=== PATIENT | female | born 1980 | race Caucasian/White ===

== ENCOUNTER → 2017-10-18 | Outpatient (CLI) | payer BC ==
[~2017-10-18] MED LIST: ADDERALL 30 MG; CLONAZEPAM1 MG; IOPAMIDOL 370 MG/ML 200 ML INFUS..BTL INJ ONE; SODIUM CHLORIDE 0.9% 50ML 50 ML ONE
[2017-10-18 14:50] LABS: BLOOD UREA NITROGEN 14 mg/dL (7-26); BUN/CREATININE RATIO 23 (6-25); CREATININE, SERUM 0.62 mg/dL (0.57-1.11); EST GLOMERULAR FILTRATION RATE > 60 ML/MIN (60-)
--- NOTE | 2017-10-22 12:06 | Diagnostic Imaging Report ---
Examination: CTA of the Neck with Contrast History: 37-year-old female with pulsatile tinnitus. Comparison studies:None Technique: Axial images were obtained from the thoracic inlet. Coronal and sagittal images reconstructed from the axial data. Intravenous contrast: 100 cc of Isovue 370. Findings: Aortic arch and major vessels: Patent. No abnormalities. Common carotid arteries: Patent. No abnormalities. Right internal carotid artery: Patent. No abnormalities. Left internal carotid artery: Patent. No abnormalities. Right vertebral artery: Patent. No abnormalities. The right vertebral artery is dominant. Left vertebral artery: Patent. No abnormalities. The left vertebral artery is nondominant, and terminates as the posterior inferior cerebellar artery. Other findings: Bony dehiscence overlying the right sigmoid sinus (series 3 image 327). No associated rarefaction of the right occipital calvarium. IMPRESSION: 1. Right sigmoid sinus dehiscence anteriorly in relation to the mastoid temporal bone and could cause patient's symptoms. 2. No carotid stenosis or occlusion or mass within the middle ear cavity such as a paraganglioma or arteriovenous malformation. This preliminary report was completed by the neuroradiology fellow Dr. Leobardo Brown. The images and preliminary report were reviewed and signed by Dr. Jennifer Avalos, neuroradiology faculty, on 10/22/2017 at 2155 hours. Signed by: Dr. Jennifer Avalos M.D. on 10/22/2017 9:56 PM
== END | disposition home or self-care (01) ==
LOC: CT 14:04
PROVIDERS: ATTEND Internal Medicine Interventional Cardiology
DX: H93.A9 Pulsatile tinnitus, unspecified ear (principal); I65.29 Occlusion and stenosis of unspecified carotid artery; Q27.30 Arteriovenous malformation, site unspecified
CPT/HCPCS: 36415; 70498; 82565; 84520; 84702; Q9967